=== PATIENT | male | born 2000 | race African-American/Black ===

== ENCOUNTER 2022-05-17 10:03 | Emergency (ER) | payer MEDICAID, OTHER ==
[~2022-05-17] VITALS: Ht 182.9 cm; Wt 73.0 kg
[2022-05-17 10:08] VITALS: BP 132/103
== END 2022-05-17 13:00 | disposition left against medical advice (07) ==
LOC: ER 10:03
DX: R11.10 Vomiting, unspecified (principal); Z53.21 Procedure and treatment not carried out due to patient leaving prior to being seen by health care provider
CPT/HCPCS: 93005